=== PATIENT | male | born 1985 ===

== ENCOUNTER 2016-06-12 09:08 | Day surgery (SDC) | payer OTHER ==
[2016-06-06 10:11] VITALS: BMI 27.4
[2016-06-12] MEDS ORDERED: HYDROmorphone 0.5 mg/0.5 ml ISec IVP PRN (10:42)
[2016-06-12] MEDS ORDERED: ceFAZolin 1 gm FROZEN Premix 100 ML IVPB ONE (11:07)
[2016-06-12] MEDS ORDERED: Propofol 10 mg/ml Inj (20 ML) ONE (11:22)
[2016-06-12] MEDS ORDERED: Midazolam 2 MG/2 ML VIAL ONE (11:22)
[2016-06-12] MEDS ORDERED: Lidocaine Hydrochloride 5 ML INJ ONE (11:24)
[2016-06-12] MEDS ORDERED: Lactated Ringer's 1,000 ML IV ONE ×2 (11:30→13:17)
[2016-06-12] MEDS ORDERED: EPINEPHrine 1 mg/ml (1:1000) Inj ONE (11:39)
[2016-06-12] MEDS: Bupivacaine 0.5% Inj(30mL) ONE ×2 (12:18→13:02)
[2016-06-12] MEDS ORDERED: Oxycodone/Acetaminophen 5/325 mg Tab PO PRN ×2 (13:18)
[2016-06-12] MEDS: HYDROmorphone 0.5 mg/0.5 ml ISec IVP PRN ×3 (13:20→13:54)
--- NOTE | 2016-06-12 13:21 | PCM.SURG1 ---
Surgeon's Initial Post Op Note - Surgeon's Notes Surgeon: Lev Textile Stylist: Sung Guzman Type of Anesthesia: General LMA Anesthesia Administered By: albina Pre-Operative Diagnosis: Left ankle arthritis. Left ankle intability. left syndesmotic tear Operative Findings: see dication Post-Operative Diagnosis: same Operation Performed: left ankle scope. left ankle tightrope. letf internal brace. PRP Specimen/Specimens Removed: none Estimated Blood Loss: EBL {In ML}: 5 Blood Products Given: N/A Date of Surgery/Procedure: 06/12/16 Time of Surgery/Procedure: 13:20
[2016-06-12] MEDS ORDERED: HYDROmorphone 0.5 mg/0.5 ml ISec ONE (13:22)
--- NOTE | 2016-06-12 13:23 | CP.PCM.DIS ---
Provider - Provider Attending physician: Dorothy Ohara DPM Time Spent in preparation of Discharge (in minutes): 25 Hospital Course - Hospital Course Hospital Course: patient tolerated anesthesia and procedure well and was transported ot hte pacu with VSS and NVSI to the left foot and ankle Patient is to call for f/u appt with Dr. Ohara next week to keep dressing CDI until follow up Rx placed in chart To be NWB with crutch. Discharge Exam - Neurological Exam Neurological exam: Alert, Oriented x3 - Psychiatric Exam Psychiatric exam: Normal Affect, Normal Mood - Skin Skin Exam: Normal Color, Warm Discharge Plan - Follow Up Plan Condition: GOOD Disposition: HOME/ ROUTINE Additional Instructions: patient tolerated anesthesia and procedure well and was transported ot hte pacu with VSS and NVSI to the left foot and ankle Patient is to call for f/u appt with Dr. Ohara next week to keep dressing CDI until follow up Rx placed in chart To be NWB with crutch. Referrals: Dorothy Ohara DPM [Staff Provider] -
[2016-06-12] MEDS ORDERED: Bupivacaine HCl 0.5% PF (10 ml) Inj ONE (13:54)
[2016-06-12] MEDS ORDERED: Bupivacaine HCl 0.25% PF (10 ml) Inj ONE (13:54)
--- NOTE | 2016-06-12 13:59 | RAD ---
PROCEDURE: Left Ankle Radiographs. HISTORY: s/p left foot surgery COMPARISON: 12/27/2014 FINDINGS: BONES: No fracture. Two metallic like densities flank the medial tibial metaphysis and lateral distal diaphysis. An intervening horizontal tear osseous track line is present- likely for ankle mortise stabilization. JOINTS: Normal. No osteoarthritis. Ankle mortise maintained. Talar dome intact SOFT TISSUES: Lateral perimalleolar soft tissue swelling with subcutaneous gas consistent with recent surgical intervention OTHER FINDINGS: None. IMPRESSION: Postop changes as above
--- NOTE | 2016-06-12 14:15 | PCM.ANESB2 ---
Popliteal Nerve Block - Popliteal Nerve Block Date of Procedure: 06/12/16 Anesthesiologist: Jeyson Pre-Procedure Diagnosis: s/p left foot surgery Procedure Performed: Popliteal Nerve Block Left - Procedure Popliteal Nerve Block: This procedure was explained to the patient that it is for post-operative pain management. Consent was obtained both preoperative and postoperatively after a thorough discussion with the patient regarding the benefits and possible complications of local anesthetic block of the sciatic nerve at the popliteal level. The patient was brought to the recovery room and standard monitors are applied. After applying oxygen by nasal cannula and administering IV Sedation, patient's operative leg was gently raised and supported and the groove in between the biceps femoris and vastus lateralis muscles was carefully palpated. The ultrasound transducer was then applied to the posterior thigh approximately 8cm above the popliteal crease in the transverse plane and the sciatic nerve before its division was visualized lateral to the popliteal artery and in between the bicep femoris and semimembranosus/semitendinosus muscles. After identification, the lateral portion of the thigh was prepped with chloraprep. At this point, a # 21 gauge echobright insulated 4 inch needle was inserted into pre-marked area and advanced in a perpendicular direction. The needle was inserted above the ultrasound transducer in-plane towards the sciatic nerve in a [id number] direction. Needle advancement was performed carefully under direct ultrasound visualization. After repeated negative aspiration, 20 cc of _ 0.25____ % bupivacaine_ was injected under ultrasound guidance the local anesthetics were observed tenting the epidural sheath and surrounding the roots of the sciatic nerve. The needle was removed intact. The patient tolerated the popliteal nerve block well with stable vital signs and appropriate analgesia.
[2016-06-12 15:19] VITALS: BP 117/62; PULSE 88; RESP 18; TEMP 98.5; O2SAT 99
--- NOTE | 2016-06-13 18:26 | OP ---
PROCEDURE DATE: 06/12/2016 SURGEON: Dorothy Ohara DPM. HOUSING INSPECTOR: 1. Ben Guzman DPM, PGY-3. 2. Jeancarlos Almaraz DPM, PGY-2. BRANDING SPECIALIST: HOSSEIN Condon. PREOPERATIVE DIAGNOSES: 1. Left ankle chronic ankle arthritis. 2. Left lateral syndesmotic rupture. 3. Left lateral ankle instability. POSTOPERATIVE DIAGNOSES: 1. Left ankle chronic ankle arthritis. 2. Left lateral syndesmotic rupture. 3. Left lateral ankle instability. NAME OF PROCEDURE: 1. Left ankle arthroscopy with extensive debridement and synovectomy. 2. Left ankle repair of syndesmosis with Arthrex TightRope. 3. Left ankle lateral ankle stabilization with Arthrex internal brace system. 4. Left ankle implantation of platelet-rich plasma autograft. INDICATIONS: This is a 30-year-old male with the aforementioned diagnoses. The patient at this time has exhausted all other conservative treatment options and he opts and requests for surgical intervention. The patient signed a consent form after careful explanation of all the risks, benefits, complications , and alternatives to the surgical procedure. There were no guarantees made, given, or implied. PREPARATION: The patient was brought into the operating room, placed on the operating room table in the supine position. A well-padded pneumatic thigh tourniquet was placed on the patient's left thigh at the upper 1/3 thigh level. After induction of general anesthesia, the left foot, ankle, and lower leg were then prepped and draped in the usual sterile manner. A timeout was performed. An Esmarch was utilized to exsanguinate the left foot, ankle, and lower leg. The pneumatic thigh tourniquet was inflated to 350 mmHg and then the procedure began. PROCEDURE: Our attention now directed to the anterior aspect of the patient's left ankle where the tendon of the tibialis anterior and extensor digitorum longus were identified. Next, at the level of the ankle joint and medial to the tibialis anterior tendon, approximately 15-20 mL of injectable sterile saline were now insufflated into the ankle joint. Next, utilizing a #15 blade, an approximately 1.5 cm linear incision was created medial to the tibialis anterior tendon at the level of the ankle joint thus creating the medial portal. Next, utilizing a hemostat, blunt dissection carried down to the level of the ankle joint capsule. Once the level levels encountered a sharp #11 blade was utilized to make a linear incision within the ankle joint capsule. Next, the 2.7, 30-degree arthroscope was now peripherally inserted into the medial portal. The anatomy of the ankle joint was then identified and there was noted to be an abundance of hypertrophic synovium as well as fibrous banding within the ankle joint. The ankle joint was then inspected for any osteochondral defects and none at this time were noted. Next, the camera and light source were now carried to the lateral side of ankle where the skin was transilluminated. Once all vital neurovascular structures were noted to not be within our incision site, a lateral portal was created in a similar fashion to the medial portal. Next, the 3.5 shaver was then inserted into the lateral portal and debridement of the hypertrophic synovium and fibrous banding commenced. Periodically throughout debridement, the shaver was exchanged for the Arthrocare wand and hypertrophic synovium and fibrous bands were also ablated. After significant debridement, the ankle joint was reinspected for osteochondral defects and none were noted. Next, the 2.7 scope and 3.5 shaver were then switched portals and the medial aspect of the ankle was now debrided. Again the Arthrocare wand and the shaver were alternated during the process of debridement of the hypertrophic synovial and fibrous bands. Again, the ankle was inspected for osteochondral defects and none were noted. After debridement was completed, the ankle joint was irrigated with a copious amount of normal sterile saline solution. After ankle joint irrigation was completed, the arthroscopic instruments were now removed and cleared from the surgical field. The skin for the ankle joint arthroscopy portals was then reapproximated with 4-0 nylon suture in a simple interrupted fashion. PROCEDURE #2: Approximately 1 cm linear longitudinal incision was created on the lateral aspect of the fibula at approximately 2 cm superior to the ankle joint. Utilizing blunt dissection and a [place] elevator the fibula was exposed into the operative field. Next, utilizing intraoperative fluoroscopy, the guidewire from the Arthrex TightRope system was then passed through the lateral aspect of the fibula through the entirety of the fibula and then through the medial and lateral cortices of the tibia, finally exiting the medial aspect of the patient's tibia. Proper positioning of the guidewire was then confirmed with the use of intraoperative fluoroscopy. After that was confirmed, the cannulated drill from the Arthrex TightRope system was placed over the guidewire with the soft tissue sleeve. Next, the medial and lateral cortices of the fibula and then the tibia were then drilled with the supplied Arthrex drill bit. After that was completed, the drill bit and guide were then removed from the surgical field and the 2 drill holes within the fibula and tibia were then cleaned with the red guidewire sleeve. Next, the needle from the entire wound was now passed through the lateral and then the medial cortices of the fibula and then the tibia and exiting out the medial aspect of the patient's left ankle, the needle was then cut free from the suture and the medial and lateral buttons of the Arthrex TightRope system were then manipulated utilizing the sutures to be flush against their respective bones. Proper positioning of the buttons was then verified with the use of intraoperative fluoroscopy. After that was confirmed any excess suture was then cut to an appropriate length and removed from the surgical field. Next, the surgical sites were irrigated with a copious amount of normal sterile saline solution. The skin was then reapproximated with #4-0 nylon suture in a simple interrupted fashion. PROCEDURE #3: Our attention now directed to the lateral aspect of the patient' s left ankle joint. Overlying the approximate area of the anterior talofibular ligament an approximately 5-6 cm curvilinear incision overlying the anterior talofibular ligament was then created in the anterolateral aspect of the left ankle joint. The incision was deepened to the subcutaneous tissues utilizing combination of sharp and blunt dissection. Care was taken to identify and retract all vital neurovascular structures and cauterize all bleeders as necessary. Next our incision continued down to the level of the ankle joint capsule where a #15 blade was now utilized to make a capsular incision overlying the lateral aspect of the talus. During the course of our dissection , the anterior talofibular ligament was noted to be completely ruptured. After the ankle joint capsule incision, the ankle joint itself was then inverted and the articular cartilage of the lateral gutter were inspected for osteochondral defects and none were noted. Next, the drill bit within the Arthrex internal brace kit was utilized to create a drill hole within the nonarticulating surface of the talus directed at approximately 45 degrees to prevent the drill hole from violating the ankle joint. The second drill hole was then created with the same drill bit at approximately 1.5 cm proximal to the distal anterior tip of the fibula. The drill holes in the talus were then fully tapped with the supplied tap. Next, the drill holes in the fibula were then tapped approximately [facility], again with the supplied tap within the internal brace kit. Next, the 4.75 mm SwiveLock with the FiberTape was now inserted appropriately into the talus drill hole. After insertion was completed, the inserting devices then removed and the 2 free strands of FiberTape were now pulled taut to ensure that they would not back out the talus. Next, the 2 strands of the FiberTape were now fed through a free needle and the FiberTape was then passed distally through the ankle joint capsule and part of the anterior talofibular ligament insertion. Next, the free needles removed and the 2 free of the FiberTape were now fed through the empty 4.75 mm SwiveLock. Next, with the ankle held in mild dorsiflexion and eversion position, the second SwiveLock was then inserted under physiologic tension into the fibular drill hole. After insertion was completed, the insertion device was then removed and any excess and free FiberTape was now cut and/or removed from the surgical field. Next, the surgical site was now irrigated with a copious amount of normal sterile saline solution. The ankle was now put through a range of motion and the internal brace was noted to maintain its position and adequately reapproximate the anterior talofibular ligament. Next, the subcutaneous and subcuticular tissues were reapproximated with #3-0 and #4-0 Vicryl suture. The skin was then reapproximated with #4-0 Prolene suture in an interrupted horizontal mattress fashion. PROCEDURE #4: Next while performing procedures #1-3, approximately 10 mL of the patient's own blood was harvested from his IV Hep-Lock and then placed into the centrifuge mixed with anticoagulants. This yielded approximately 5 mL of platelet-rich plasma solution. The platelet-rich plasma solution was then placed in a syringe for the procedure and the syringe was then attached to a # 22 gauge needle. The platelet-rich plasma autograft solution was then implanted into the ankle joint as well as several surrounding perforations into the lateral aspect of the ankle to increase surface area of the platelet-rich plasma autograft solution. After that was completed, the syringe needles were then removed and passed from the field. All surgical sites were now cleansed and dried. Xeroform was then applied to all surgical sites, followed by dry sterile dressings, followed by a standard posterior splint with the ankle held at approximately 90 degrees to the leg. The pneumatic thigh tourniquet was deflated and removed prior to splint application. POSTOPERATIVE CONDITION: The patient tolerated the anesthesia and the procedure well and was escorted to the recovery room with his vital signs stable and neurovascular status intact to the left foot as well as noting hyperemia to all 5 digits of the left foot. The patient will be nonweightbearing to the left lower extremity. The patient will follow up with Dr. Ohara in the [facility] [place] podiatry clinic next week. Ben Guzman DPM Dorothy Ohara DPM cc: [id number] TT: 06/13/2016 18:25:57 jn [email or web address]
== END 2016-06-12 15:20 | disposition home or self-care (01) ==
LOC: C.SDS 09:08 → MERGE 09:08 → C.SDS 15:20
PROVIDERS: ATTEND Podiatrist Foot & Ankle Surgery
DX: M19.172 Post-traumatic osteoarthritis, left ankle and foot (principal); M25.372 Other instability, left ankle; S93.492A Sprain of other ligament of left ankle, initial encounter; Z98.1 Arthrodesis status; Z79.891 Long term (current) use of opiate analgesic
CPT/HCPCS: 27700; 29899; 73600; 97116; 97162; C1713; G8978; G8979; G8980; J0171; J0690; J1170; J2250; J2704; J3010; J7120

== ENCOUNTER 2016-12-22 08:21 | Day surgery (SDC) | payer OTHER ==
[~2016-12-22 08:21] MED LIST: Midazolam 2 MG/2 ML VIAL ONE; Propofol 10 mg/ml Inj (20 ML) ONE
[2016-12-22 08:35] VITALS: BMI 27.1
[2016-12-22 08:56] LABS: BASO # 0.1 K/uL (0.0-0.2); BASO % 0.9 % (0.0-2.0); EOS # 0.3 K/uL (0.0-0.7); EOS % 4.6 % (0.0-4.0); HEMATOCRIT 39.7 % (35.0-51.0); LYMPH # 2.8 K/uL (1.0-4.3); LYMPH % 39.9 % (20.0-40.0); MEAN CELL VOLUME 92.7 fL (80.0-94.0); MEAN CORPUSCULAR HEMOGLOBIN 31.6 pg (27.0-31.0); MEAN PLATELET VOLUME 8.9 fL (7.2-11.7); MONO # 0.5 K/uL (0.0-0.8); MONO % 7.8 % (0.0-10.0); NRBC % 0.1 % (0.0-2.0); RED CELL DISTRIBUTION WIDTH 12.8 % (11.5-14.5); WHITE BLOOD COUNT 6.9 K/uL (4.8-10.8)
[2016-12-22 09:09] LABS: CHLORIDE 102 mmol/L (98-107); POTASSIUM 3.7 mmol/L (3.6-5.2); SODIUM 138 mmol/L (132-148)
[2016-12-22 09:11] LABS: GFR AFRICAN-AMERICAN > 60
[2016-12-22 09:12] LABS: BLOOD UREA NITROGEN 22 mg/dL (9-20); CALCIUM 8.9 mg/dl (8.6-10.4); CARBON DIOXIDE 24 mmol/L (22-30); GLUCOSE,RANDOM 81 mg/dL (75-110)
[2016-12-22] MEDS ORDERED: Lidocaine 1% Inj (20ml) ONE (09:12)
[2016-12-22] MEDS ORDERED: Bacitracin Ointment 30 GM TUBE ONE (09:12)
[2016-12-22] MEDS ORDERED: ceFAZolin IV 1 gm in Dextrose 1 GM/50 ML BAG IVPB ONE (09:12)
[2016-12-22] MEDS ORDERED: Bupivacaine HCl 0.5% PF (10 ml) Inj ONE (09:12)
[2016-12-22] MEDS ORDERED: Lactated Ringer's 1,000 ML IV ONE ×2 (09:44→11:21)
[2016-12-22] MEDS ORDERED: Sodium Chloride 0.9% 20 ML IV ONE (10:21)
[2016-12-22] MEDS ORDERED: ePHEDrine 50 mg/ml Inj ONE (10:38)
--- NOTE | 2016-12-22 12:06 | PCM.SURG1 ---
Surgeon's Initial Post Op Note - Surgeon's Notes Surgeon: Dr. Ohara Kindergarten Prep Teacher: Fletcher, PGY-3; Gerson, PGY-3 Type of Anesthesia: General LMA, Block Regional (popliteal block) Anesthesia Administered By: Dr. Ramachandran Pre-Operative Diagnosis: Left ankle- painful posterior tibial tendon synovitis; partial tear of the deltoid ligament Operative Findings: See dictation. Hemostasis: PTT at 350mmHg. Materials: Arthrex Internal Brace; 2-0, 4-0 vicryl; 4-0 monocryl; 3cc Amniotic graft injection; 5cc PRP injection; steri strips, 4x4 gauze, kerlix, stockinette, webril, modified AO splint; JAIRO bandages. Injectables: 10cc 0.5% marcaine plain post-op for saphenous n. block. Condition: Stable. Complications None Post-Operative Diagnosis: Same as above Operation Performed: Left ankle- posterior tibial tendon tenosynovectomy; deltoid ligament repair using Arthrex InternalBrace Specimen/Specimens Removed: Left ankle- posterior tibial tendon tenosynovium Estimated Blood Loss: EBL {In ML}: 10 Blood Products Given: N/A Drains Used: No Drains Post-Op Condition: Good Date of Surgery/Procedure: 12/22/16 Time of Surgery/Procedure: 09:00
[2016-12-22] MEDS ORDERED: HYDROmorphone 0.5 mg/0.5 ml ISec ONE (12:20)
[2016-12-22] MEDS ORDERED: Lactated Ringer's 1,000 ML IV SCH (12:30)
[2016-12-22] MEDS: HYDROmorphone 0.5 mg/0.5 ml ISec IVP PRN ×2 (12:40→13:09)
[2016-12-22] MEDS ORDERED: Phenylephrine 10 mg/ml Inj ONE (13:08)
[2016-12-22] MEDS ORDERED: Bupivacaine 0.5% Inj(30mL) ONE (14:09)
--- NOTE | 2016-12-22 14:30 | PCM.ANESB7 ---
Adductor Canal Block - Adductor Canal Block Date of Procedure: 12/22/16 Anesthiologist: Frank Pre-Procedure Diagnosis: left ankle sprain Post-Procedure Diagnosis: left ankle tendons repair Procedure Performed: Adductor Canal Block Left - Procedure Adductor Canal Block: The procedure was explained to the patient that it is for the post-operative pain management. Consent was obtained after a thorough discussion with the patient regarding the benefits and possible complications of local anesthetic adductor canal block of the femoral nerve. Standard monitors, as defined by the ASA, were applied to the patient. Time-out was held with the RR nurse to confirm the appropriate block. After applying supplemental oxygen, the patient was placed in supine position with and the operative leg was flexed slightly at the knee and externally rotated as needed, and was kept anatomically stable. The mid-thigh of the left_ lower extremity was exposed. The ultrasound transducer was then applied transversely along the medial aspect, about midway down the thigh and the femoral artery and vein were identified in appropriate relation with the sartorius muscle. At this time, the femoral nerve was visualized lateral to the femoral artery within the canal. After thorough identification, this area area was prepped with Chloroprep solution three times and 1 % Lidocaine was injected subcutaneously for topical anesthesia. At this point, a #22 gauge Stimuplex 4-inch needle was inserted in-plane in a pixurft-iy-wywzah orientation, and advanced toward the femoral nerve. Advancement was performed carefully under direct ultrasound visualization. After negative aspiration, _20 cc of 0.5% _Bupivacaine__was injected_. Under ultrasound guidance the local anesthetics were observed spreading around the femoral nerve. The needle was removed intact and sterile dressing was applied. The patient had stable vital signs, was conscious and in no apparent distress. The patient tolerated the femoral nerve block well with stable vital signs.
[2016-12-22 14:34] VITALS: O2SAT 97
[2016-12-22 14:56] VITALS: BP 173/70; PULSE 80; RESP 18; TEMP 97
--- NOTE | 2016-12-27 15:23 | PCM.OP ---
Operative Report - Operative Report Date of Surgery/Procedure: 12/22/16 Time of Surgery/Procedure: 09:00 Surgeon: Dorothy Ohara DPM Property Management Accountant: Damien Bynum DPM PGY-3; Edilberto Nieto DPM PGY-3 Anesthesia/Sedation: General LMA with regional (popliteal) block Pre-Operative Diagnosis: 1. Left ankle- painful posterior tibial tendon tenosynovitis. 2. Left ankle- partial tear of the deltoid ligament Post-Operative Diagnosis: 1. Left ankle- painful posterior tibial tendon tenosynovitis. 2. Left ankle- partial tear of the deltoid ligament Indication for Surgery: The patient is a 30 year-old male with the above diagnoses. The patient signed the consent after careful explanation of risks, benefits, complication and alternatives for surgical procedure. No guarantees were given nor implied. 2 grams of ancef IV were given to the patient prior to the procedure. The patients NPO status was confirmed prior to taking pt to the OR. Operative Findings: See below Procedure/Operation Description: PREPARATION: The patient was brought to the operating room and placed on the operating room table in supine position. Time- out was performed for identification of the correct patient and the correct procedure. Upon induction of general anesthesia, a well-padded pneumatic thigh tourniquet was placed to the patient's Left thigh. The Left lower extremity was then prepped and draped in usual sterile manner. Esmarch was then utilized to exsanguinate the patients Left lower extremity. Pneumatic thigh tourniquet was then inflated to 350 mmHg and procedure began. PROCEDURE #1: Left ankle- posterior tibial tendon tenosynovectomy. Attention was directed to the medial aspect of the patients left ankle. Using a surgical marking pen, anatomical landmarks such as the tip of the medial malleolus and the sustentaculum amelie were marked. Using a #15 blade, an approximately 10cm curvilinear incision was created along the path of the posterior tibial tendon. The incision was then deepened through the subcutaneous tissues using sharp and blunt dissection. Care was taken to identify and retract all vital neurovascular structures. All bleeders were cauterized and ligated as necessary. Using dissecting scissors, dissection was carried down to the level of the flexor retinaculum of the Left ankle. At this time, the flexor retinaculum was incised to allow for inspection of the posterior tibial tendon proximally and distally. Next, there were noted to be multiple segments of hypertrophied synovial tissue throughout the distal and proximal aspects of the posterior tibial tendon sheath. This hypertrophied synovium was then carefully excised and passed from the operative field, to be sent for pathology. The posterior tibial tendon was then closely inspected at this time and no tears or other abnormalities were noted within the tendon. PROCEDURE #2: Left ankle- deltoid ligament repair using Arthrex InternalBrace. At this time, the posterior tibial tendon was gently retracted inferiorly to expose the deltoid ligament. A partial tear was noted within the fibers of the deltoid ligament. At this time, the ligament was incised and the fibers of the ligament were freed from their medial malleolar and medial talar attachments. At this time the medial malleolus and the medial aspect of the talar body were freed of all their soft tissue attachments. Next, using intra- operative fluoroscopy and a freer elevator for guidance, the sustentaculum amelie was identified and a small soft tissue window was then created overlying the sustentaculum amelie. Next, a K-wire was then drilled into the medial malleolus, the medial talar body and the sustentaculum amelie. Intra-operative fluoroscopy was utilized to confirm accurate orientation of the K-wires and also to ensure that the wire placement was extra-articular. Next, a 3.4mm drill hole was made into the medial malleolus and the hole was then tapped using the Arthrex 4.75mm SwiveLock tap. The 4.75mm SwiveLock anchor loaded with FiberTape was now inserted into the medial malleolus drill hole. Next, both the talus and the sustentaculum amelie were now drilled using a 2.7mm drill bit and the hole was then tapped using the 3.5mm SwiveLock tap. One tail of the FiberTape from the previously inserted 4.75mm SwiveLock was then loaded into two separate 3.5mm SwiveLocks. One was inserted into the medial talar body and the second one was inserted into the sustentaculum amelie. This effectively allowed for repair and augmentation of the deltoid ligament secondary to the establishment of tibiocalcaneal and tibiotalar anchor bridges. A significant reduction in eversion was appreciated at this time. The surgical site was now irrigated with a copious amount of sterile normal saline. Deep tissue closure was now performed using 2-0 vicryl. PROCEDURE #3: Left ankle- platelet-rich plasma and Amniotic graft injection. Prior to administration of anesthesia, approximately 60cc of the patients own blood was harvested from the IV Heplock and placed into a centrifuge mixed with an anticoagulant. This yielded approximately 5cc of platelet-rich plasma solution. This PRP solution was now placed into a syringe and was now implanted into multiple areas within and surrounding the deltoid ligament repair site. Next, approximately 3cc of Amniotic graft was now injected into the deltoid repair site to facilitate healing. At this time, the subcutaneous tissues were reapproximated and coapted using 4-0 vicryl. The skin was then reapproximated and coapted using 4-0 monocryl in a running subcuticular fashion. Steri-strips were now applied over the incision site. 10cc of 0.5% Marcaine plain was now injected to block the saphenous nerve. The Left ankle was now dressed with dry sterile dressings. A well-padded AO splint was now applied to the Left lower extremity while ensuring to maintain the ankle dorsiflexed to 90 degrees. The attending, Dr. Ohara, was present throughout the entire case. Estimated Blood Loss: 10 Complications: None Specimen: Left ankle- posterior tibial tendon sheath Discharge & Condition: Post-operative condition: The patient tolerated the procedure and anesthesia well and with no complications. The patient was escorted to the recovery room with vital signs stable and neurovascular status intact to the Left lower extremity. The patient was instructed to remain non- weightbearing to the Left lower extremity with crutches. He has received prescriptions for pain mediation and PO antibiotics from Dr. Ohara. He is to follow-up with Dr. Ohara at the [facility] podiatry clinic on an outpatient basis
== END 2016-12-22 15:46 | disposition home or self-care (01) ==
LOC: C.OPSURG 08:21
PROVIDERS: ATTEND Podiatrist Foot & Ankle Surgery
DX: M65.872 Other synovitis and tenosynovitis, left ankle and foot (principal); M76.822 Posterior tibial tendinitis, left leg
CPT/HCPCS: 27626; 36415; 80048; 85025; 88304; 97116; 97161; C1713; G8978; G8979; G8980; J0690; J1170; J2250; J2370; J2405; J2704; J3010; J7120; V2790

== ENCOUNTER 2018-02-01 06:01 | Day surgery (SDC) | payer OTHER ==
[2018-01-29 14:41] VITALS: BMI 29.5
[2018-02-01] MEDS ORDERED: Bupivacaine HCl 0.5% PF (30 ml) Inj ONE (07:25)
[2018-02-01] MEDS ORDERED: ceFAZolin IV 1 gm in Dextrose 2 GM/100 ML BAG IVPB ONE (07:25)
[2018-02-01] MEDS ORDERED: Lidocaine 2% MPF (5 ml) Inj ONE (07:25)
[2018-02-01] MEDS ORDERED: Midazolam 2 MG/2 ML VIAL ONE ×2 (08:17→09:02)
[2018-02-01] MEDS ORDERED: Etomidate 20 mg/10ml Inj IV ONE (08:18)
[2018-02-01] MEDS ORDERED: Bacitracin 500 Units/gm Oint Foilpak UD ONE (09:16)
[2018-02-01] MEDS ORDERED: HYDROmorphone 0.5 mg/0.5 ml ISec IVP PRN (09:35)
[2018-02-01] MEDS ORDERED: Oxycodone/Acetaminophen 5/325 mg Tab PO PRN ×2 (09:36)
--- NOTE | 2018-02-01 09:37 | PCM.SURG1 ---
Surgeon's Initial Post Op Note - Surgeon's Notes Surgeon: Dr. Ohara Machine Pack Assembler: Shine Bynum PGY2, Yadi Padilla PGY2 Type of Anesthesia: IV Sedation, Local (20cc 1:1 mixture 1% lidocaine & 0.5% marcaine) Anesthesia Administered By: Dr. Meek Pre-Operative Diagnosis: Left posterior tibial tendonitis Operative Findings: See operative report. m: 4cc BMA. i: 15cc 0.5% marcaine Post-Operative Diagnosis: Same Operation Performed: Left harvest of bone marrow aspirate with injection to posterior tibial tendon and deltoid complex Specimen/Specimens Removed: bone marrow aspirate, left calcaneus Estimated Blood Loss: EBL {In ML}: 1 Blood Products Given: N/A Drains Used: No Drains Post-Op Condition: Good Date of Surgery/Procedure: 02/01/18 Time of Surgery/Procedure: 09:37
--- NOTE | 2018-02-01 09:49 | RAD ---
Date of service: 02/01/2018 PROCEDURE: Intraoperative Fluoroscopy. HISTORY: LT. CHRONIC POATERIOR TIBIAL TENDONITIS FINDINGS: Fluoroscopic assistance was provided. Fluoroscopy time = 8 sec. Radiation dose = 0.8 mGy. Please refer to the operative report from LAURYN Duque.
[2018-02-01] MEDS ORDERED: DiphenhydrAMINE 50 mg/ml Inj IVP STA (10:09)
[2018-02-01] MEDS ORDERED: Lactated Ringer's 500 ML IV ONE (10:33)
[2018-02-01 11:28] VITALS: RESP 18
[2018-02-01 11:45] VITALS: BP 132/86; PULSE 87; TEMP 97.8; O2SAT 99
== END 2018-02-01 12:20 | disposition home or self-care (01) ==
LOC: C.SDS 06:01
PROVIDERS: ATTEND Podiatrist Foot & Ankle Surgery
DX: M76.822 Posterior tibial tendinitis, left leg (principal)
CPT/HCPCS: 38220; J0690; J1200; J2250; J3010; J7120